=== PATIENT | female | born 1960 | race Caucasian/White ===

== ENCOUNTER 2024-06-24 08:51 | Outpatient (CLI) | payer OTHER, SELFPAY | END 2024-06-24 08:52 | disposition home or self-care (01) | PROVIDERS: PCP Internal Medicine; Visit Provider Internal Medicine | DX: Z00.00 Encounter for general adult medical examination without abnormal findings (principal); Z13.6 Encounter for screening for cardiovascular disorders; Z13.9 Encounter for screening, unspecified | CPT/HCPCS: 80053; 80061 ==

== ENCOUNTER 2024-07-06 10:26 | Outpatient (CLI) | payer OTHER, SELFPAY ==
[2024-07-08 04:38] LABS: HPV Source Cervical; HPV, High Risk by TMA Detected
[2024-07-09 05:17] LABS: HPV Genotype 16 by TMA Detected; HPV Genotype 18/45 by TMA Not Detected; HPVG Source Cervical
== END 2024-07-06 10:27 | disposition home or self-care (01) ==
PROVIDERS: PCP Internal Medicine; Visit Provider Obstetrics & Gynecology
DX: R87.615 Unsatisfactory cytologic smear of cervix (principal); R87.810 Cervical high risk human papillomavirus (HPV) DNA test positive; Z12.4 Encounter for screening for malignant neoplasm of cervix; Z11.51 Encounter for screening for human papillomavirus (HPV)
CPT/HCPCS: 87624; 87625; 88141; 88142

== ENCOUNTER 2024-09-21 09:40 | Outpatient (CLI) | payer OTHER, SELFPAY ==
--- NOTE | 2024-09-21 10:00 | CRLHL7_ITS ---
For Patients: As a result of the Century Cures Act, medical imaging exams and procedure reports are released immediately into your electronic medical record. You may view this report before your referring provider. If you have questions, please contact your health care provider. 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 FINDINGS: Sonographic images demonstrate a normal size and smooth outer contour of the uterus. Uterus measures 5.4 cm in length by 2.2 cm in AP diameter by 2.9 cm in transverse dimension. Posterior intramural fibroid measures 1.1 x 0.7 x 0.9 cm. Exophytic right fundal fibroid measures 1.5 x 1.4 x 1.1 cm. The endometrial lining measures 1.6 mm in composite thickness. Fluid is present in the endometrial canal. The right ovary measures 1.9 x 1.3 x 1.5 cm in size and the left ovary measures 1.7 x 0.7 x 1.7 cm. The ovaries demonstrate normal arterial and venous blood flow on color Doppler analysis. There are no suspicious fluid collections within the cul-de-sac. IMPRESSION: Endometrial thickness 1.6 millimeters. Moderate amount of endometrial fluid is present. Uterine fibroids are present measuring up to 1.5 cm. Dictated by Juan Francisco Aguirre MD @ 09/21/2024 10:33:22 AM (Electronically Signed)
== END 2024-09-21 09:41 | disposition home or self-care (01) ==
LOC: US 09:40
PROVIDERS: PCP Internal Medicine; Visit Provider Obstetrics & Gynecology
DX: R87.810 Cervical high risk human papillomavirus (HPV) DNA test positive (principal); R93.89 Abnormal findings on diagnostic imaging of other specified body structures; D25.9 Leiomyoma of uterus, unspecified; N95.2 Postmenopausal atrophic vaginitis; N88.2 Stricture and stenosis of cervix uteri
CPT/HCPCS: 76830; 76856

== ENCOUNTER 2024-11-19 06:04 | Day surgery (SDC) | payer OTHER, SELFPAY ==
[2024-11-17] MEDS: SCOPOLAMINE 1 MG/3 DAY PATCH 1 PATCH TRANSDERMA (07:00)
[2024-11-17] MEDS: ACETAMINOPHEN 500 MG TABLET 1000 MG PO (07:00)
[2024-11-17] MEDS: GABAPENTIN 600 MG TABLET PO (07:00)
[2024-11-19] VITALS (18 sets, daily range): BP systolic 124–148; BP diastolic 72–84; PULSE 50–78; RESP 14–18; TEMP 36.3–37; O2SAT 91–100; BMI 30.2
[2024-11-19] MEDS: SODIUM CHLORIDE 0.9 % (FLUSH) 10 ML SYRINGE IVF (06:30)
[2024-11-19] MEDS: LACTATED RINGERS 1000 ML 1,000 ML 100 ML IV (06:30)
[2024-11-19 06:58] LABS: Hemoglobin* 12.1 gm/dL (12.0-16.0)
[2024-11-19] MEDS: PHENAZOPYRIDINE HCL 200 MG TABLET PO (07:00)
[2024-11-19 07:13] LABS: Est. Creatinine Clearance* 46.13; Estimated Glomerular Filt Rate 64 ml/min
--- NOTE | 2024-11-19 07:14 | W.PM.H&PU_ITS ---
History & Physical Update History & Physical Update H&P Reviewed and patient assessed: No changes noted H&P Updates: Ms. Fountain is seen in pre-op prior to planned TLH, BSO and diagnostic cystoscopy. No interval change to her health history or questions today. We again reviewed the risks, benefits and alternatives to the planned procedure. Written consent was re-signed. Post-procedure restrictions and expectations reviewed. Pre-op labs reviewed and are within normal limits. Ancef as p erioperative antibiotics indicated.
[2024-11-19] MEDS: CEFAZOLIN 2 GM INJ IVP (07:25)
[2024-11-19] MEDS: BUPIVACAINE 0.25% 30 ML INJECTION (08:48)
--- NOTE | 2024-11-19 09:00 | W.PM.NB ---
Nerve Block Nerve Block Time Seen by Provider: 07:27 Date Seen: 11/19/24 Type of block requested by surgeon for post-operative analgesia: TAP Side: bilateral Time out performed: Yes Verification of patient name: Yes Verification of date of : Yes Site marking: site marked Name of person performing procedure: Arsen Continuous monitoring Was continuous monitoring of O2 sat, B/P, area operations manager, recorded every 15 minutes?: Yes Procedure Checklist: sterile prep, needles and gloves Ultrasound guided. Images saved: Yes Medications given in 5ml increments after negative aspiration: Marcaine %: 0.25 mL: 30 Needle gauge: 20 and Exparel mL: 10 Patient tolerated procedure well: Yes Additional comments: Needle noted between internal oblique and transversus abdominus. Local spread visualized Block Charges Block Charge (with Pro Fee): TAP Bilateral Use of Ultrasound Machine for Block: Yes- US Guidance/pain block
--- NOTE | 2024-11-19 09:54 | W.PM.GYNPROC ---
Procedure Note Time Seen by Provider: 10:08 Date of procedure: 11/19/24 Will [facility] bill your pro fee for this procedure?: Yes Pre-op diagnosis: 1. 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 2. Cervical stenosis. 3. Inability to complete adequate cervical cancer screening. Post-op diagnosis: 1. 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 2. Cervical stenosis. 3. Inability to complete adequate cervical cancer screening. 4. Pedunculated fibroid. Procedure: Total Laparoscopic Hysterectomy, Bilateral Salpingo-oophorectomy, Cystoscopy Anesthesia: GETA Complications: None Surgeon: Peng Macdonald MD Marketing Operations Intern: Kathleen Barnhart Estimated blood loss (mL): 50 IV fluids (mL): 1,500 Urine Output (mL): 200 Pathology: specimen obtained, sent to pathology Condition: stable Disposition: same day Findings: Complete stenosis of the external os Small uterus, 1cm pedunculated fibroid off the fundus Unremarkable bilateral fallopian tubes and ovaries Normal cystoscopy, bilateral robust ureteral efflux Procedure Description: Patient was taken to the operating room with IV running. She received cefazolin in preoperative prophylaxis. She was positioned in dorsal lithotomy position with her legs fully supported in Yellofin stirrups. General anesthesia was administered. She was prepped and draped in the usual sterile fashion. Pelvic exam under anesthesia was performed for the above-noted findings. Speculum was inserted. Complete obliteration of the external os was noted, with a dimpled area noted that I suspect is her external os. Given these findings and high risk for uterine perforation with introduction of a manipulator, decision was made to pause the vaginal portion of the case and instead enter the peritoneal cavity to perform dilation and appear placement under direct visualization. Attention was turned to patient's abdomen. Infraumbilical area was infiltrated with a small amount of Marcaine. A 12 mm infraumbilical incision was made with a scalpel and carried down to the underlying layer of fascia with the hemostat. The fascia was grasped with Dahiana clamps and elevated, fascial incision made with scalpel. A curved hemostat was utilized to enter peritoneum and gently stretch fascial incision. Beltran trocar was introduced to the peritoneal cavity, balloon inflated. 10mm camera inserted and high flow initiated. Pneumoperitoneum was achieved, where careful attention was paid below site of entry - no injury or bleeding noted. Upper abdominal survey was completed, revealing normal anatomy. Patient was put into Trendelenburg, pelvic survey as noted above. An additional 5mm port site in the right lower quadrant, just superomedial to the ASIS, was inserted under direct visualization. Balloon was inflated. The sigmoid colon was gently moved to visualize the pelvis for cervical dilation and manipulator placement. A speculum was reinserted. Cervix visualized and grasped along its anterior lip with a single-tooth tenaculum. An 11 blade was utilized to make a stab incision at the suspected external os location. The smallest cervical dilator was utilized, where eventually I could access the endocervical canal introduce the dilator to the uterine fundus. Cervix was serially dilated to accommodate the VCare uterine manipulator, small cup selected. Attempted to pass the tip of the manipulator through the cervix, with significant difficulty. I attempted to change my angle to accommodate for the trajectory that was previously allow passage of the Hegar dilator. Anterior perforation at about the level of the internal os occurred, as evidenced by the tip of the manipulator in the vesicouterine peritoneal reflection. Decision was made to abandon attempts at passage of the VCare. Diagnostic cystoscopy was performed, ensuring unremarkable bladder and ureteral survey with no evidence of cystotomy. A blunt vaginal probe was introduced and secured to drapes to aid with distinction of the cervix and uterus. Attention was turned again to the patient's abdomen. Two additional left sided ports were created. The first was in the patient's left lower quadrant, just superomedial to the left ASIS. The second was a hand's breadth superior to and slightly medial to the first. Both incisions and trocars were 5mm, inserted under direct visualization and without complication. The balloon on each of the ports was inflated, holding each in place. Attention was first turned to the left adenxa, where the ureter could be easily visualized several centimeters inferior to planned transection site of the infundibulopelvic ligament transperitoneally. The IP was grasped and serially coagulated, using the Ligasure device. The ovarian vessels were ligated and transected, leaving a vascular pedicle that was noted to be hemostatic. I continued to dissect the left adnexal structures off the peritoneum, working inferiorly toward the round ligament. The left round ligament was cauterized and transected with the Ligasure device. The anterior peritoneal reflection was opened and developed using a combination of sharp and electrocautery dissection, creating a bladder flap to the midline of the uterus. Site of cervical perforation was noted on the left anterior margin of the cervix. Attention was then turned to the right side of the pelvis. The ureter was readily visualized transperitoneally, where right salpingo-oophorectomy was performed in the same fashion. The round ligament was opened on the right, where the bladder flap was further developed moving laterally to medially to meet the left sided dissection. Care was made to drop the bladder reflection to well below the planned site of colpotomy utilizing vaginal probe as an aid. The posterior peritoneum was dissected to isolate the posterior vaginal probe carefully, with a combination of blunt and sharp dissection. The bilateral uterosacral ligaments cauterized and transected with ligasure. The right uterine vessels were isolated, then serially coagulated with ligasure. The right uterine vessels were transected with ligasure, noted to drop lateral planned site of colpotomy. Attention was turned back to the left side, where the uterine vessels were coagulated then transected once more. These vessels similarly fell lateral to the planned site of colpotomy. Survey was completed to ensure clear dissection plane of the planned colpotomy, where the vaginal probe could be palpated circumferentially. The vaginal fornix was then entered at the right lateral margin using the [facility] monopolar spatula using the colpotomizer as a guide. The device was moved along the colpotomizer cup circumferentially, in a counter clockwise fashion. The uterus and cervix were freed from their attachments to the pelvis. The uterus and bilateral adnexa were was pulled into the patient's vagina and removed. Specimens sent for pathologic evaluation. A gloved sponge was reinserted into the vagina to maintain the pneumoperitoneum. A 2 0 V lock suture was inserted through the left lower quadrant port. Using laparoscopic needle drivers, the vaginal cuff was closed in a running fashion, incorporating the distal most aspects of the uterosacral ligaments bilaterally into the closure. Closure proceeded from right to left, and then 2 additional stitches were placed moving more medially to assure that the closure remained intact. Suture was cut. Ports were left in place but all instruments were removed and pneumoperitoneum was released. Patient's legs were placed back in lithotomy position. Gloved sponge was removed from the patient's vagina. The Hogue catheter was removed from the bladder, and the cystoscope was assembled with saline inflow, outflow, and light cord in place. The patient was given PO pyridium prior to the procedure to aid with ureteral efflux identification. Cystoscope was advanced through the urethra into the bladder, and survey of the mucosa revealed a normal appearance. The bladder dome was intact. Bilateral ureteral jets were noted. Cystoscope was removed and Hogue catheter replaced. Patient's legs were again placed in neutral position. Insufflator was reattached to the port and pneumoperitoneum again achieved. Survey of the pelvis revealed excellent hemostasis. Low pressure test confirmed excellent hemostasis. All ports were removed under direct visualization. Pneumoperitoneum was released. Umbilical fascia was grasped with Dahiana clamps, closed with 0 vicryl on a UR6 in a [id number] fashion. Hemostasis of the subcutaneous tissue was assured with electrocautery. The skin of each port site was closed in a subcuticular fashion with 4 0 Monocryl. Surgical glue was applied above this. Patient tolerated procedure well and was taken to recovery area in stable condition. Hogue catheter remained in situ. Surgical debrief completed, specimen is uterus, cervix, bilateral fallopian tubes and ovaries. EBL 50cc, IVF 1500cc, UOP 200cc.
--- NOTE | 2024-11-19 10:17 | P.ANES_ITS ---
Anesthesia Charges Start Date/Time Anesthesia Start Date: 11/19/24 Anesthesia Start Time: 07:17 Stop Date/Time Anesthesia Stop Date: 11/19/24 Anesthesia Stop Time: 10:15 Coding CPT Codes CPT Codes: ANESTH SURG LOWER ABDOMEN - 45488 ([id number]) - SHELL MOLD BONDER 2-4 CNCRNT ANES PROC, P1 - NORMAL HEALTHY PATIENT
--- NOTE | 2024-11-19 10:17 | W.ANESCHARGE ---
Anesthesia Charges Start Date/Time Anesthesia Start Date: 11/19/24 Anesthesia Start Time: 07:17 Stop Date/Time Anesthesia Stop Date: 11/19/24 Anesthesia Stop Time: 10:15 Coding CPT Codes CPT Codes: ANESTH SURG LOWER ABDOMEN - 33804 ([id number]) - DATA PROCESSING SUPERVISOR 2-4 CNCRNT ANES PROC, P1 - NORMAL HEALTHY PATIENT
--- NOTE | 2024-11-19 10:42 | P.ANES_ITS ---
Anesthesia Charges Start Date/Time Anesthesia Start Date: 11/19/24 Anesthesia Start Time: 07:17 Stop Date/Time Anesthesia Stop Date: 11/19/24 Anesthesia Stop Time: 10:15 Coding CPT Codes CPT Codes: ANESTH SURG LOWER ABDOMEN - 84823 ([id number]) P2 - PATIENT W/MILD SYST DISEASE, QK - REINFORCING METAL WORKER 2-4 CNCRNT ANES PROC, QX - ACETONE RECOVERY WORKER SVC W/ MD MED DIRECTION
--- NOTE | 2024-11-19 10:42 | W.ANESCHARGE ---
Anesthesia Charges Start Date/Time Anesthesia Start Date: 11/19/24 Anesthesia Start Time: 07:17 Stop Date/Time Anesthesia Stop Date: 11/19/24 Anesthesia Stop Time: 10:15 Coding CPT Codes CPT Codes: ANESTH SURG LOWER ABDOMEN - 20674 ([id number]) P2 - PATIENT W/MILD SYST DISEASE, QK - ACCOUNTS PAYABLE MANAGER 2-4 CNCRNT ANES PROC, QX - PENS AND PENCILS DIPPER SVC W/ MD MED DIRECTION
--- NOTE | 2024-11-19 12:33 | SUR.PHASEII ---
850 CC clear, orange-tinted urine drained @ 1234
--- NOTE | 2024-11-19 12:50 | SUR.PHASEII ---
Patient up to ambulate. [place] weak after a short walk. Patient to wheelchair and back to [facility] 01. VSS. Patient denies being dizzy or light-headed. No loss of consciousness. Patient states she feels okay to remain in the wheelchair. Given call light and ice water. at bedside.
[2024-11-19] MEDS: 0.9 % SODIUM CHLORIDE 500 ML 500 ML 100 ML IV (13:45)
--- NOTE | 2024-11-19 15:08 | SUR.PHASEII ---
bladder back filled with 300cc ns and schroeder pulled at 1500.
--- NOTE | 2024-11-19 15:50 | SUR.PHASEII ---
pt voided 300cc yellow urine at 1530. pt tolerating ambulation around unit. vitals WNL. pt denies pain. discharge instructions reviewed with patient and both patient and spouse verbalized understanding.
== END 2024-11-19 15:52 | disposition home or self-care (01) ==
PROVIDERS: PCP Internal Medicine; Visit Provider Obstetrics & Gynecology
PROC: 0UT94ZZ Resection of Uterus, Percutaneous Endoscopic Approach (ICD-10-PCS; CPT 58571; principal; 2024-11-19 07:15)
DX: R87.810 Cervical high risk human papillomavirus (HPV) DNA test positive (principal); N88.2 Stricture and stenosis of cervix uteri; N83.292 Other ovarian cyst, left side; N83.291 Other ovarian cyst, right side; D25.1 Intramural leiomyoma of uterus; D25.2 Subserosal leiomyoma of uterus; G89.18 Other acute postprocedural pain
CPT/HCPCS: 58571; 00840; 36415; 64488; 76942; 82565; 85018; 86850; 86900; 86901; 88307; A4314; A9270; J0665; J0666; J0690; J1100; J1171; J2250; J2405; J2704; J2710; J3010; J3490; J7030; J7120

== ENCOUNTER 2025-01-26 14:40 | Outpatient (CLI) | payer OTHER, SELFPAY ==
--- NOTE | 2025-01-26 15:00 | CRLHL7_ITS ---
For Patients: As a result of the Century Cures Act, medical imaging exams and procedure reports are released immediately into your electronic medical record. You may view this report before your referring provider. If you have questions, please contact your health care provider. INDICATION: BILATERAL SCREENING MAMMOGRAM, ASYMPTOMATIC COMPARISON: 10/30/2023, 10/22/2022, 10/01/2021 TECHNIQUE: Digital mammogram in CC and MLO projections including computer-aided detection (CAD) and tomosynthesis. BREAST COMPOSITION: There are scattered areas of fibroglandular density. FINDINGS: No suspicious findings. ASSESSMENT: BI-RADS 1 Negative RECOMMENDATION: Annual screening mammogram. A lay language report of this examination will be provided to the patient. Dictated by: Juan Francisco Aguirre MD @ 01/31/2025 09:07:33 (Electronically Signed)
== END 2025-01-26 14:41 | disposition home or self-care (01) ==
LOC: MAMMO 14:40
PROVIDERS: PCP Internal Medicine; Visit Provider Internal Medicine
DX: Z12.31 Encounter for screening mammogram for malignant neoplasm of breast (principal)
CPT/HCPCS: 77063; 77067